=== PATIENT | female | born 1960 | race Two or more races ===

== ENCOUNTER 2017-11-03 07:24 | Outpatient (CLI) | payer OTHER | END 2017-11-03 07:38 | disposition home or self-care (01) | LOC: MRI 07:24 | DX: R51 Headache (principal) | CPT/HCPCS: 70551 ==

== ENCOUNTER 2024-09-04 10:52 | Outpatient (CLI) | payer OTHER | END 2024-09-04 10:58 | disposition home or self-care (01) | LOC: RAD 10:52 | PROVIDERS: ATTEND Orthopaedic Surgery | DX: M54.50 Low back pain, unspecified (principal) ==